=== PATIENT | male | born 1945 | race Caucasian/White ===

== ENCOUNTER → 2021-12-17 08:27 | Outpatient (CLI) | payer BC, SELFPAY ==
[2021-12-17 08:55] LABS: Add Manual Diff / Slide Review NO; Basophils Absolute Auto 0 /uL (0-100); Basophils Percent Auto 0.8 % (0-2); Eosinophils Absolute Auto 200 /uL (0-450); Eosinophils Percent Auto 2.6 % (2-4); Hematocrit 43.5 % (41-53); Hemoglobin 14.9 g/dL (13.5-17.5); Lymphocytes Absolute Auto 1400 /uL (1100-4500); Mean Corpuscular HGB Conc 34.3 % (30-36); Mean Corpuscular Hemoglobin 31.7 PG (26-34); Mean Corpuscular Volume 92.5 fL (80-100); Monocytes Absolute Auto 600 /uL (0-900); Monocytes Percent Auto 10.1 % (3-14); Neutrophils Absolute Auto 4000 /uL (1500-7000); Neutrophils Percent Auto 64.5 % (50-75); Platelet Count 210 X10^3/uL (150-400); Red Cell Distribution Width 12.9 % (11.6-14.8); White Blood Cell Count 6.2 X10^3/uL (4.5-11.0)
[2021-12-17 09:14] LABS: Alanine Aminotransferase 23 IU/L (<50); Albumin 4.4 g/dL (3.5-5.0); Albumin Globulin Ratio 1.5 (1.0-2.8); Alkaline Phosphatase 104 U/L (38-126); Aspartate Aminotransferase 30 IU/L (17-59); BUN Creatinine Ratio 15.5 (6-22); Bilirubin Total 0.7 mg/dL (0.2-1.3); Blood Urea Nitrogen 13 mg/dL (9-20); Calcium 9.4 mg/dL (8.4-10.2); Carbon Dioxide 28 mmol/L (22-32); Chloride 106 mmol/L (98-107); Cholesterol 133 mg/dL (140-199); Estimated Glomerular Filt Rate > 60.0 mL/min (>60); Glucose 100 mg/dL (80-110); HDL Cholesterol 49 mg/dL (40-60); HEMOLYSIS < 15 (0-50); LDL Cholesterol Calculated 64 mg/dL (<100); Potassium 4.3 mmol/L (3.4-5.1); Sodium 141 mmol/L (137-145); Total Protein 7.4 g/dL (6.3-8.2); Triglycerides 98 mg/dL (35-150)
[2021-12-17 09:44] LABS: Prostate Specific Antigen Scrn < 0.064 ng/mL (0.1-4.0)
== END ==
PROVIDERS: PCP Family Medicine; Referring Provider Family Medicine; Visit Provider Family Medicine
DX: E78.5 Hyperlipidemia, unspecified (principal); G47.9 Sleep disorder, unspecified; K21.9 Gastro-esophageal reflux disease without esophagitis; K44.9 Diaphragmatic hernia without obstruction or gangrene; Z12.5 Encounter for screening for malignant neoplasm of prostate
CPT/HCPCS: 36415; 80053; 80061; 85025; G0103

== ENCOUNTER → 2022-02-03 10:40 | Outpatient (CLI) | payer BC, SELFPAY | PROVIDERS: PCP Family Medicine; Visit Provider Physician Assistant | DX: R30.0 Dysuria (principal) | CPT/HCPCS: 87077; 87086; 87186 ==

== ENCOUNTER → 2022-03-03 09:47 | Outpatient (CLI) | payer BC, SELFPAY ==
[2022-03-03 10:46] LABS: Appearance Urine UA CLEAR; Bilirubin Urine UA NEGATIVE (NEGATIVE); Color Urine UA YELLOW; Glucose Urine UA NEGATIVE (Negative); Ketones Urine UA NEGATIVE (NEGATIVE); Leukocyte Esterase Urine UA 1+ (NEGATIVE); Nitrite Urine UA NEGATIVE (Negative); Occult Blood Urine UA 1+ (Negative); Protein Urine UA TRACE (Negative); Specific Gravity Urine UA 1.025 (1.000-1.035); Urobilinogen Urine UA 0.2 E.U./dL (0.2)
[2022-03-03 10:55] LABS: RBC Urine 1-5/HPF (0-5/HPF)
[2022-03-03 10:56] LABS: Bacteria Urine Moderate (10-30); Culture Indicated Urine Specimen Cultured; WBC Urine 30-100/HPF (0-5/HPF)
== END ==
PROVIDERS: PCP Family Medicine; Referring Provider Family Medicine; Visit Provider Family Medicine
DX: N39.0 Urinary tract infection, site not specified (principal)
CPT/HCPCS: 81001; 87077; 87086; 87186

== ENCOUNTER → 2022-04-15 08:31 | Outpatient (CLI) | payer BC, SELFPAY ==
--- NOTE | 2022-04-15 08:33 | DI.MRI.S_ITS ---
PROCEDURE: MR LUMBAR SPINE WO CON INDICATIONS: worsening low back pain TECHNIQUE: Noncontrast sagittal T1 spin echo and T2 fast echo, sagittal STIR, axial T1 and T2 fast spin echo through the lumbar spine. Axial and oblique coronal T1 spin echo and STIR through the sacrum. In cases with scoliosis, additional coronal T2 fast spin echo may be performed. COMPARISON: [facility], CR, XR LUMBAR SPINE 2-3V, 04/15/2022, 8:30. FINDINGS: Image quality: Excellent. Alignment and Curvature: There is normal bony alignment. Bone Marrow: Decompressive laminectomy noted at L3 and L5. L3-4 and L4-5 interbody fusion with associated posterior cathie and screw instrumentation present. Degenerative endplate changes present at L5-S1 with grade 1 anterior spondylolisthesis. Spinal Cord: Conus medullaris terminates at the L1 level. Visualized cord demonstrates normal signal and size. Paraspinous Soft Tissues: Left renal exophytic cyst arises from the upper pole measures 3.3 cm. T12-L1: Normal appearance. L1-L2: Disc space narrowing with circumferential disc bulge results in mild central stenosis. Moderate right and no left foraminal stenosis. L2-L3: Disc space narrowing with circumferential disc bulge and hypertrophic facet joints results in mild central stenosis. Moderate right and mild left foraminal stenosis present. L3-L4: Discectomy and fusion. Hypertrophic facet joints noted. Mild central stenosis. Moderate right and left foraminal stenosis. L4-L5: Discectomy and fusion with decompressive laminectomy. No central stenosis. L5-S1: Normal appearance. IMPRESSION: Multilevel degenerative disc disease and arthropathy results in varying degrees of central and foraminal stenosis including moderate right foraminal stenosis at L2-3, L3-4 and L4-5. L2-3 and L3-4 discectomy and fusion with posterior cathie and screw instrumentation in good position. L3 and L5 decompressive laminectomies Approved by: Frank Thurman M.D. on 04/15/2022 at 11:15
--- NOTE | 2022-04-15 08:33 | DI.RAD.S_ITS ---
PROCEDURE: XR LUMBAR SPINE 2-3V INDICATIONS: chronic low back pain TECHNIQUE: 3 views of the lumbar spine were acquired. COMPARISON: None. FINDINGS: Bones: Two views of the lumbar spine demonstrate postoperative changes of pedicular screw and cathie fixation spanning from L3 through L5. Discectomy has been performed at these levels. Disc space narrowing is seen at multiple levels most severely at L2-3 and L5-S1 consistent with severe disc disease Facet arthrosis is present at these levels. The sacroiliac joints have degenerative changes. There is leftward curvature of the lumbar spine. Soft tissues: Overlying bowel gas pattern is normal. No suspicious soft tissue calcifications. IMPRESSION: 1. Postoperative changes of the lumbar spine without complication. 2. Multilevel degenerative changes with severe disc disease at L2-3 and L5-S1. 3. Curvature of the lumbar spine. Dictated by: Juwan Rice M.D. on 04/15/2022 at 11:17 Approved by: Juwan Rice M.D. on 04/15/2022 at 11:20
== END ==
PROVIDERS: PCP Family Medicine; Referring Provider Family Medicine; Visit Provider Family Medicine
DX: M51.36 Other intervertebral disc degeneration, lumbar region (principal); M47.816 Spondylosis without myelopathy or radiculopathy, lumbar region; M54.50 Low back pain, unspecified; G89.29 Other chronic pain; Z98.1 Arthrodesis status
CPT/HCPCS: 72100; 72148

== ENCOUNTER → 2022-04-18 14:45 | Outpatient (CLI) | payer BC, SELFPAY ==
--- NOTE | 2022-05-13 08:49 | P.HOLT.S_ITS ---
[employer] Report Referral & Results Date Patient Seen: 04/18/22 Requesting provider: Jhonatan Horan Indication: Bradycardia Duration of monitoring (days): 14 Diary information: There were 2 patient triggered events and 3 patient diary entries Patient triggered events were associated with (within 45 seconds) sinus rhythm, PVCs and ventricular bigeminy Patient diary events were associated with (within 45 seconds) sinus rhythm, PACs, PVCs, and ventricular bigeminy Data: Minimum heart rate identified was 46 beats per minute at 11:06 on 04/22/2022 Maximum sinus heart rate was 115 beats per minute at 04:51 on 04/19/2022 Maximum overall heart rate was 139 beats per minute at 07:29 on 04/22/2022 Less than 1% of identified beats were ventricular or supraventricular ectopic in origin, which would classify them as rare. There were brief runs of ventricular bigeminy and trigeminy with the longest being on the order of 20 seconds There was 1 run of nonsustained monomorphic ventricular tachycardia at a rate of 121 beats per minute that was 4 beats in duration, and these were fairly narrow complexes at a relatively slow rate suggesting the possibility of atrial tachycardia with aberrant conduction rather than true ventricular tachycardia (I favor atrial tachycardia with aberrancy rather than ventricular tachycardia, but the computer disagrees) There were 6 runs of SVT with the fastest run being 8 beats at a rate of 139 beats per minute the longest lasting 18 beats at a rate of 102 beats per minute. These episodes of SVT may well be more atrial tachycardia rather than true SVT There were no pauses of 3 seconds or longer or episodes of atrial fibrillation identified on this study Impression: 14 day director of cardiac rehabilitation demonstrating heart rates as above with rare simple ectopy Very rare very brief runs of atrial tachycardia also identified on this study Clinical correlation suggested
== END ==
PROVIDERS: PCP Family Medicine; Referring Provider Family Medicine; Visit Provider Family Medicine
DX: R00.1 Bradycardia, unspecified (principal)
CPT/HCPCS: 93246; 93248

== ENCOUNTER → 2022-07-05 15:38 | Outpatient (CLI) | payer BC, SELFPAY ==
--- NOTE | 2022-07-05 15:39 | DI.RAD.S_ITS ---
PROCEDURE: XR SACRUM COCCYX MIN 2V INDICATIONS: coccygeal pain TECHNIQUE: 3 views of the sacrum and coccyx acquired. [facility], CR, XR LUMBAR SPINE 2-3V, 04/15/2022, 8:30. lyCOMPARISON: FINDINGS: Bones: No fractures or dislocations. No suspicious bony lesions. Posterior/interbody fusion at the L3-L4 and visualized. Degenerative disc and facet disease at the L5-S1 level; otherwise normal appearance of the sacrum/coccyx. Symmetric SI and hip joint degeneration. Soft tissues: Visualized bowel gas pattern is normal. No suspicious soft tissue densities. IMPRESSION: 1. Postsurgical and degenerative changes of the lower lumbar spine incompletely visualized. 2. Normal appearance of the sacrum and coccyx. MRI could be performed for further evaluation if there is continued concern for a radiographically occult fracture. 3. Symmetric SI and hip joint degeneration redemonstrated. Dictated by: Portillo JIMÉNEZ Interpreted: Han Benton MD on 07/05/2022 at 16:28 Approved by: Han Benton M.D. on 07/05/2022 at 17:01
== END ==
PROVIDERS: PCP Family Medicine; Referring Provider Family Medicine; Visit Provider Family Medicine
DX: M51.37 Other intervertebral disc degeneration, lumbosacral region (principal); M47.817 Spondylosis without myelopathy or radiculopathy, lumbosacral region; M47.898 Other spondylosis, sacral and sacrococcygeal region; M16.9 Osteoarthritis of hip, unspecified; M53.3 Sacrococcygeal disorders, not elsewhere classified; M54.50 Low back pain, unspecified; G89.29 Other chronic pain
CPT/HCPCS: 72220

== ENCOUNTER → 2022-07-13 13:32 | Outpatient (CLI) | payer BC, SELFPAY ==
--- NOTE | 2022-07-13 13:33 | DI.MRI.S_ITS ---
PROCEDURE: MR PELVIS WO CON INDICATIONS: coccyx / sacrum pain TECHNIQUE: Noncontrast coronal and axial T1 spin echo and STIR through the bony pelvis. COMPARISON: [facility], CR, XR SACRUM COCCYX MIN 2V, 07/05/2022, 15:50. FINDINGS: Image quality: Excellent. Bones: There is no marrow edema. No acute fracture or dislocation. Bilateral sacroiliac joint spaces are fairly well preserved. No ankylosis or bony erosive changes. No suspicious intraosseous lesion. Visualized bilateral hip joints show no evidence of avascular necrosis of femoral head. Soft tissues: There is significant edema involving bilateral paraspinous muscles in lower back which may indicated muscle strain versus recent injections suggest clinical correlation. No free pelvic fluid. Bladder wall thickness is normal. Genitourinary structures and bowel loops appear normal where visualized. IMPRESSION: 1. No marrow edema. No fracture or dislocation. No SI joint ankylosis or erosion. 2. Symmetric appearing subcutaneous soft tissue edema and edema within bilateral paraspinous muscles in lower back which may represent muscle strain versus prior injections, suggest clinical correlation. Postsurgical changes also seen in visualized lower lumbar spine. Dictated by: Gee Hall M.D. on 07/13/2022 at 16:22 Approved by: Gee Hall M.D. on 07/13/2022 at 16:35
== END ==
PROVIDERS: PCP Family Medicine; Referring Provider Family Medicine; Visit Provider Family Medicine
DX: M53.3 Sacrococcygeal disorders, not elsewhere classified (principal); R60.0 Localized edema
CPT/HCPCS: 72195

== ENCOUNTER → 2022-07-19 07:01 | Outpatient (CLI) | payer BC, SELFPAY ==
[2022-07-19 07:50] LABS: Appearance Urine UA CLOUDY; Bilirubin Urine UA NEGATIVE (NEGATIVE); Color Urine UA YELLOW; Glucose Urine UA NEGATIVE (Negative); Ketones Urine UA TRACE (NEGATIVE); Leukocyte Esterase Urine UA 3+ (NEGATIVE); Nitrite Urine UA POSITIVE (Negative); Occult Blood Urine UA 3+ (Negative); Protein Urine UA 2+ (Negative); Specific Gravity Urine UA 1.025 (1.000-1.035); Urobilinogen Urine UA 0.2 E.U./dL (0.2)
[2022-07-19 08:04] LABS: RBC Urine 10-30/HPF (0-5/HPF)
[2022-07-19 08:05] LABS: Bacteria Urine Many (>30); Culture Indicated Urine Specimen Cultured; WBC Urine >100/HPF (0-5/HPF)
== END ==
PROVIDERS: PCP Family Medicine; Referring Provider Student in an Organized Health Care Education/Training Program; Visit Provider Student in an Organized Health Care Education/Training Program
DX: R30.0 Dysuria (principal)
CPT/HCPCS: 81001; 87077; 87086; 87186

== ENCOUNTER → 2022-11-07 12:06 | Outpatient (CLI) | payer BC, SELFPAY | PROVIDERS: PCP Family Medicine; Visit Provider Nurse Practitioner Family | DX: R30.0 Dysuria (principal) | CPT/HCPCS: 87077; 87086; 87186 ==

== ENCOUNTER 2023-07-26 06:29 | Day surgery (SDC) | payer BC, SELFPAY ==
--- NOTE | 2023-07-25 07:18 | PM.PREOP ---
Pre-operative Note COVID-19 COVID-19 status: Not tested Criteria for continued procedure: Expected advancement of disease process, Possibility delay results in more complex future surgery or treatment, Increased loss of function, Delay expected to result in less-positive ultimate med/surg outcome and Non-surgical alternatives not available or appropriate per current SOC Interval Note History & Physical reviewed/Exam performed by Physician: Yes Changes to H&P: No H&P completed within 30 days and has changed as indicated here:: Sen by retina specialist this week and stable macular degeneration
--- NOTE | 2023-07-25 07:19 | PM.OP.1 ---
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 3. Glaucoma 4. Macular degeneration Postoperative diagnosis: Status post ectropion repair with horizontal lid shortening and punctal surgery. 3. Anesthesia local with monitored standby. 4. Blood loss: Less than 3 cc 5. Specimen: None Operative summary: Patient presents with excessive irritation and tearing from exposure due to bilateral lower lid laxity malposition the of the lacrimal puncta which were also closed. The patient has failed conservative measures including lubrication and antibiotic ointment and desires surgery to improve these symptoms. The patient is taken to the operating room and positioned. Monitoring is performed. Local anesthetic consisting of 2% xylocaine with epinephrine mixed half and half with 0.5% Marcaine with 1 cc of hyulronidase for pain relief and hemostasis. 3 cc was given to each lower lid and punctum Good anesthesia was obtained. Attention was placed to the right lower lid. A punctal dilator was used to enlarge the punctum. It was then probed to the nose. Tenotomy scissors were used to make a 3 snip procedure to enlarge the punctum permanently. Attention was placed to the lateral canthus. A 15. Bard-Aaron blade was used to make an incision for 1 cm. The periosteum was exposed. Cautery was used as needed. The inferior canthal tendon was lysed with scissors. A tarsal strip was formed with clearance of the anterior and posterior lamella and any exposed lashes. Minimal shortening was performed. There is extensive herniated temporal fat and this was removed through a decision and cauterized. The strip was then transected with 5.0 Mersilene type suture which was placed double-armed through the periosteum and tied with multiple knots at the orbital rim. The outer tarsus and lid was then closed with 6 0 interrupted sutures. The procedure was repeated on the left side in identical fashion. There was minimal bleeding. S the patient was somewhat restless during the procedure and complained of back pain so he was given a propofol drip and fentanyl for pain relief. Therefore he was monitored in the recovery room and stabilized prior to discharge. He was stable to be discharged to home at the time of his release. Sutures will be removed in the office in approximately 10 days. Same procedure as scheduled: Yes
[2023-07-26] VITALS (7 sets, daily range): BP systolic 138–156; BP diastolic 71–82; PULSE 49–62; RESP 12–18; TEMP 36.1–36.4; O2SAT 93–97; BMI 25.8
[2023-07-26] MEDS: LACTATED RINGERS 1,000 ML 42 ML IV (07:16)
[2023-07-26] MEDS: NEO/POLYMIX B/DEX OPHTH SUSP 1 DROPS EYE-BOTH (08:36)
[2023-07-26] MEDS: LIDOCAINE 2% W/EPI 3 ML, BUPIVACAINE 0.5% (PF) 2 ML, HYALURONIDASE 150 UNIT INJ (08:39)
[2023-07-26] MEDS: PROPARACAINE 0.5% OPHTH SOL 2 DROPS EYE-BOTH (08:42)
--- NOTE | 2023-07-26 08:57 | SUR.OPER ---
Supine on eye stretcher, head on extension cradle and foam donut. Arms tucked at sides. Pillow under knees. Several warm blankets placed over patient. Safety belt across thighs and secured.
== END 2023-07-26 10:15 | disposition home or self-care (01) ==
PROVIDERS: PCP Family Medicine; Referring Provider Ophthalmology; Visit Provider Ophthalmology
PROC: (CPT 67917; principal; 2023-07-26 07:45)
DX: H02.105 Unspecified ectropion of left lower eyelid (principal); H02.102 Unspecified ectropion of right lower eyelid; H04.553 Acquired stenosis of bilateral nasolacrimal duct; H40.9 Unspecified glaucoma
CPT/HCPCS: 67917; J2704; J3010; J3470

== ENCOUNTER → 2025-09-10 06:58 | Outpatient (CLI) | payer BC, SELFPAY ==
[2025-09-10 07:54] LABS: Add Manual Diff / Slide Review NO; Hematocrit 38.5 % (41-53); Hemoglobin 13.0 g/dL (13.5-17.5); Lymphocytes Absolute Auto 1100 /uL (1100-4500); Mean Corpuscular HGB Conc 33.9 % (30-36); Mean Corpuscular Hemoglobin 31.8 PG (26-34); Mean Corpuscular Volume 93.8 fL (80-100); Platelet Count 257 X10^3/uL (150-400)
[2025-09-10 08:19] LABS: Alanine Aminotransferase 28 IU/L (<50); Albumin 4.2 g/dL (3.5-5.0); Albumin Globulin Ratio 1.6 (1.0-2.8); Alkaline Phosphatase 86 U/L (38-126); Blood Urea Nitrogen 13 mg/dL (9-20); Calcium 9.0 mg/dL (8.4-10.2); Carbon Dioxide 27 mmol/L (22-32); Chloride 101 mmol/L (98-107); Cholesterol 129 mg/dL (140-199); Estimated Glomerular Filt Rate > 60 mL/min (>60); Globulin 2.7 g/dL (1.7-4.1); Glucose 99 mg/dL (70-99); HDL Cholesterol 61 mg/dL (40-60); HEMOLYSIS < 15 (0-50); Potassium 5.1 mmol/L (3.4-5.1); Sodium 135 mmol/L (137-145); Total Protein 6.9 g/dL (6.3-8.2); Triglycerides 65 mg/dL (35-150)
[2025-09-10 08:26] LABS: HEMOLYSIS < 15 (0-50); Iron 72 ug/dL (49-181)
[2025-09-10 08:37] LABS: Percent Iron Saturation 22 % (20-50); Total Iron Binding Capacity 331 ug/dL (261-462); Transferrin 280 mg/dL (206-381)
[2025-09-10 08:53] LABS: Ferritin 19 ng/mL (18-464)
[2025-09-10 08:55] LABS: TSH w/ Reflex to FT4 2.61 uIU/mL (0.47-4.68)
== END ==
PROVIDERS: PCP Family Medicine; Referring Provider Family Medicine; Visit Provider Family Medicine
DX: E78.2 Mixed hyperlipidemia (principal); M53.3 Sacrococcygeal disorders, not elsewhere classified; M54.50 Low back pain, unspecified; G89.29 Other chronic pain; K21.9 Gastro-esophageal reflux disease without esophagitis; G47.9 Sleep disorder, unspecified; Z12.5 Encounter for screening for malignant neoplasm of prostate; D64.9 Anemia, unspecified
CPT/HCPCS: 36415; 80053; 80061; 82728; 83540; 83550; 84443; 85025; G0103

== ENCOUNTER → 2025-09-10 10:32 | Outpatient (CLI) | payer BC, SELFPAY ==
--- NOTE | 2025-09-10 10:34 | DI.RAD.S_ITS ---
PROCEDURE: XR LUMBAR SPINE 2-3V INDICATIONS: chronic low back TECHNIQUE: 3 views of the lumbar spine were acquired. COMPARISON: [facility], CR, XR LUMBAR SPINE 2-3V, 04/15/2022, 8:30. FINDINGS: Bones: 5 [id number] vertebrae are present. There is normal bony alignment. No vertebral body compression fractures. Posterior and interbody surgical fusion of L3 through L5, without hardware complication. Severe disc height loss L1-2, L2-3, L5-S1, progressed from prior. Soft tissues: Overlying bowel gas pattern is normal. No suspicious soft tissue calcifications. IMPRESSION: Progressed, severe degenerative disc disease of the unfused discs and vertebral bodies. Dictated by: Agustin Plascencia M.D. on 09/10/2025 at 13:00 Approved by: Agustin Plascencia M.D. on 09/10/2025 at 13:26
== END ==
PROVIDERS: PCP Family Medicine; Referring Provider Family Medicine; Visit Provider Family Medicine
DX: M51.360 Other intervertebral disc degeneration, lumbar region with discogenic back pain only (principal); M51.370 Other intervertebral disc degeneration, lumbosacral region with discogenic back pain only; E78.2 Mixed hyperlipidemia; M53.3 Sacrococcygeal disorders, not elsewhere classified; K21.9 Gastro-esophageal reflux disease without esophagitis; G47.9 Sleep disorder, unspecified; D64.9 Anemia, unspecified; G89.29 Other chronic pain; Z12.5 Encounter for screening for malignant neoplasm of prostate; Z98.1 Arthrodesis status
CPT/HCPCS: 36415; 72100; 80053; 80061; 82728; 83540; 83550; 84443; 85025; G0103

== ENCOUNTER → 2025-10-21 07:58 | Outpatient (CLI) | payer BC, SELFPAY ==
--- NOTE | 2025-10-21 07:59 | DI.MRI.S_ITS ---
PROCEDURE: MR LUMBAR SPINE WO CON INDICATIONS: acute on chronic low back pain, numbness, weakness TECHNIQUE: Noncontrast sagittal T1 spin echo and T2 fast echo, sagittal STIR, and T2 fast spin echo through the lumbar spine. In cases with scoliosis, additional coronal T2 fast spin echo may be performed. COMPARISON: [facility], CR, XR LUMBAR SPINE 2-3V, 09/10/2025, 10:28. FINDINGS: Image quality: Excellent. Alignment and Curvature: There is mild, approximately 6 millimeters of L1-L2 retrolisthesis. There is trace, approximately 3 millimeters of L2-L3 retrolisthesis. Bones: L3-L5 PLIF changes. L3-L5 laminectomy changes. Mild Modic type 2 reactive endplate changes adjacent to the L1-L2, L2-L3, L3-L4, L4-L5 and L5-S1 discs. No acute vertebral body compression fractures. Spinal Cord: Conus medullaris terminates at the L2 level. Visualized cord demonstrates normal signal and size. Paraspinous Soft Tissues: No paravertebral masses. Partially visualized simple left renal cyst. T12-L1: Loss of disc signal. No central stenosis. No neural foraminal narrowing. No neural compression. L1-L2: Loss of disc signal and height. Moderate, diffuse disc bulge. Mild bilateral facet hypertrophy. Mild narrowing of the central canal. Mild bilateral neural foraminal narrowing. No neural compression. L2-L3: Loss of disc signal and height. Moderate, diffuse disc bulge. [id number] bilateral facet hypertrophy. Mild narrowing of the central canal. Moderate right and mild left neural foraminal narrowing. No neural compression. L3-L4: Status post fusion. Mild bilateral facet hypertrophy. Mild narrowing of the central canal. Moderate right and mild left neural foraminal narrowing. No neural compression. L4-L5: Status post fusion. Mild bilateral facet hypertrophy. No central stenosis. Mild right neural foraminal narrowing. No neural compression. L5-S1: Loss of disc signal and height. Moderate bilateral facet hypertrophy. No central stenosis. Mild bilateral neural foraminal narrowing. No neural compression. IMPRESSION: Postsurgical changes. Multilevel degenerative disc disease. Multilevel facet arthropathy. No severe central canal stenosis. No severe neural foraminal stenosis. No neural compression. Dictated by: Kandice Edmond MD, PhD on 10/21/2025 at 11:40 Approved by: Kandice Edmond MD, PhD on 10/21/2025 at 11:46
== END ==
LOC: MRI 07:58
PROVIDERS: PCP Family Medicine; Referring Provider Family Medicine; Visit Provider Family Medicine
DX: M47.816 Spondylosis without myelopathy or radiculopathy, lumbar region (principal); M47.817 Spondylosis without myelopathy or radiculopathy, lumbosacral region; M51.360 Other intervertebral disc degeneration, lumbar region with discogenic back pain only; M48.061 Spinal stenosis, lumbar region without neurogenic claudication; G89.29 Other chronic pain; Z98.1 Arthrodesis status
CPT/HCPCS: 72148

== ENCOUNTER → 2025-11-01 07:01 | Outpatient (CLI) | payer BC, SELFPAY ==
--- NOTE | 2025-11-01 07:02 | DI.MRI.S_ITS ---
PROCEDURE: MR LUMBAR SPINE W CON INDICATIONS: Hx of tumor, acute on chronic low back pain, numbness TECHNIQUE: A single axial T1 non-fat suppressed sequence was acquired, subsequently a sagittal and axial postcontrast fat suppressed T1 sequence were acquired. COMPARISON: [facility], MR, MR LUMBAR SPINE WO CON, 10/21/2025, 8:31. [facility], MR, MR LUMBAR SPINE WO CON, 04/15/2022, 9:02. FINDINGS: The exam is limited in acquisition of only a single precontrast and to postcontrast sequences. Post-surgical changes: Changes of L3-5 interbody and posterior instrumented fusion with associated susceptibility artifact, which degrades fat suppression on the postcontrast sequence. Marrow: Within limitations of postcontrast inhomogeneous fat suppression secondary to the spinal instrumentation, there is no confluent, marrow destructive enhancing process. Degenerative discogenic bone marrow edema centered at the L1-2 disc space without confluent adjacent soft tissue inflammation to suggest underlying infectious process. No abnormal enhancement of the spinal nerve roots within the limitations of susceptibility artifact. No focal soft tissue enhancing mass lesion to suggest tumor. IMPRESSION: No evidence of tumor or marrow destructive malignant process on limited postcontrast exam. Please see the recently acquired lumbar spine MRI for further evaluation of degenerative change. Dictated by: Clyde Bowens M.D. on 11/03/2025 at 13:18 Approved by: Clyde Bowens M.D. on 11/03/2025 at 13:32
== END ==
PROVIDERS: PCP Family Medicine; Referring Provider Family Medicine; Visit Provider Family Medicine
DX: M47.816 Spondylosis without myelopathy or radiculopathy, lumbar region (principal); M48.061 Spinal stenosis, lumbar region without neurogenic claudication; M54.9 Dorsalgia, unspecified; Z98.1 Arthrodesis status
CPT/HCPCS: 72149; A9579